=== PATIENT | male | born 1970 | race Two or more races ===

== ENCOUNTER 2018-07-08 12:06 | Emergency (ER) | payer OTHER ==
[~2018-07-08] VITALS: Ht 172.7 cm; Wt 79.4 kg
[2018-07-08 12:47] VITALS: BP 138/80
[2018-07-08] MEDS ORDERED: IBUPROFEN 800 MG TAB PO ONE (14:00)
== END 2018-07-08 14:26 | disposition home or self-care (01) ==
LOC: ER 12:13
DX: S00.83XA Contusion of other part of head, initial encounter (principal); W22.8XXA Striking against or struck by other objects, initial encounter; Y93.G3 Activity, cooking and baking; Y99.0 Civilian activity done for income or pay; Y92.511 Restaurant or cafe as the place of occurrence of the external cause
CPT/HCPCS: 70450